=== PATIENT | female | born 1975 | race Caucasian/White ===

== ENCOUNTER 2017-09-20 08:19 | Emergency (ER) | payer SELFPAY ==
[2017-09-20 08:52] LABS: ABSOLUTE LYMPHOCYTES (AUTO) 1.4 10^3/uL (0.5-4.7); ABSOLUTE MONOCYTES (AUTO) 0.5 10^3/uL (0.1-1.4); ABSOLUTE NEUT (AUTO) 5.3 10^3/uL (1.7-8.2); BASOPHILS % (AUTO) 0.5 % (0-2); EOSINOPHILS % (AUTO) 0.2 % (0-6); HEMATOCRIT 35.8 % (36.0-47.0); HEMOGLOBIN 11.3 g/dL (12.0-15.5); LYMPHOCYTES % (AUTO) 19.4 % (13-45); MEAN CORPUSCULAR HEMOGLOBIN 22.9 pg (27.0-33.4); MEAN CORPUSCULAR HGB CONC 31.5 g/dL (32.0-36.0); MEAN CORPUSCULAR VOLUME 73 fl (80-97); MONOCYTES % (AUTO) 6.5 % (3-13); PLATELET COUNT 197 10^3/uL (150-450); RED BLOOD COUNT 4.93 10^6/uL (3.72-5.28); SEGMENTED NEUTROPHILS % (AUTO) 73.4 % (42-78); TOTAL CELLS COUNTED % (AUTO) 100 %; WHITE BLOOD COUNT 7.2 10^3/uL (4.0-10.5)
[2017-09-20 09:13] LABS: ALANINE AMINOTRANSFERASE 25 U/L (9-52); ALBUMIN 4.8 g/dL (3.5-5.0); ALKALINE PHOSPHATASE 38 U/L (38-126); ANION GAP 13 (5-19); ASPARTATE AMINO TRANSFERASE 17 U/L (14-36); BILIRUBIN,DIRECT 0.5 mg/dL (0.0-0.4); BILIRUBIN,TOTAL 0.7 mg/dL (0.2-1.3); BLOOD UREA NITROGEN 8 mg/dL (7-20); CALCIUM 9.7 mg/dL (8.4-10.2); CARBON DIOXIDE 26 mmol/L (22-30); CHLORIDE 106 mmol/L (98-107); GLUCOSE 106 mg/dL (75-110); POTASSIUM 3.4 mmol/L (3.6-5.0); TOTAL PROTEIN 7.3 g/dL (6.3-8.2)
[2017-09-20 09:15] LABS: ACETAMINOPHEN < 10 ug/mL (10-30); ALCOHOL < 10 mg/dL (NONE DETECTED); SALICYLATE < 1.0 mg/dL (2.0-20.0)
--- NOTE | 2017-09-20 09:50 | ER Document Report ---
ED General - General Chief Complaint: Psych Problem Stated Complaint: PSYCH EVAL Time Seen by Provider: 09/20/17 08:45 Mode of Arrival: Medic Information source: Patient Notes: 41-year-old female presents by EMS for concerns of psychiatric behavior. It is noted that per their records patient was speaking about demons and other strange behaviors. Patient herself states that she is here for blood pressure control and forgot to take her blood pressure medication. She denies any other complaints or self except for not being able to sleep. TRAVEL OUTSIDE OF THE [place] IN LAST 30 DAYS: No - HPI Onset: Just prior to arrival Onset/Duration: Sudden Quality of pain: No pain Severity: Mild Pain Level: Denies Associated symptoms: Other Exacerbated by: Denies Relieved by: Denies Similar symptoms previously: No Recently seen / treated by doctor: No - Related Data Allergies/Adverse Reactions: No Known Allergies Allergy (Verified 09/20/17 08:42) Past Medical History - Social History Smoking Status: Never Smoker Cigarette use (# per day): No Chew tobacco use (# tins/day): No Smoking Education Provided: No Family History: Reviewed & Not Pertinent Patient has suicidal ideation: No Patient has homicidal ideation: No - Past Medical History Cardiac Medical History: Reports: Hx Hypertension Renal/ Medical History: Denies: Hx Peritoneal Dialysis Psychiatric Medical History: Reports: Hx Bipolar Disorder, Hx Schizophrenia - Immunizations Hx Diphtheria, Pertussis, Tetanus Vaccination: Yes Review of Systems - Review of Systems Notes: REVIEW OF SYSTEMS: CONSTITUTIONAL : Denies fever, chills, or sweats. Denies recent illness. EENT: Denies eye, ear, throat, or mouth pain or symptoms. Denies nasal or sinus congestion or discharge. Denies throat, tongue, or mouth swelling or difficulty swallowing. CARDIOVASCULAR: Denies chest pain. Denies palpitations or racing or irregular heart beat. Denies ankle edema. RESPIRATORY: Denies cough, cold, or chest congestion. Denies shortness of breath, difficulty breathing, or wheezing. GASTROINTESTINAL: Denies abdominal pain or distention. Denies nausea, vomiting , or diarrhea. Denies blood in vomitus, stools, or per rectum. Denies black, tarry stools. Denies constipation. GENITOURINARY: Denies difficulty urinating, painful urination, burning, frequency, blood in urine, or discharge. FEMALE GENITOURINARY: Denies vaginal bleeding, heavy or abnormal periods, irregular periods. Denies vaginal discharge or odor. MUSCULOSKELETAL: Denies back or neck pain or stiffness. Denies joint pain or swelling. SKIN: Denies rash, lesions or sores. HEMATOLOGIC : Denies easy bruising or bleeding. LYMPHATIC: Denies swollen, enlarged glands. NEUROLOGICAL: Denies confusion or altered mental status. Denies passing out or loss of consciousness. Denies dizziness or lightheadedness. Denies headache. Denies weakness or paralysis or loss of use of either side. Denies problems with gait or speech. Denies sensory loss, numbness, or tingling. Denies seizures. PSYCHIATRIC: Denies anxiety or stress. Denies depression, suicidal ideation, or homicidal ideation. ALL OTHER SYSTEMS REVIEWED AND NEGATIVE. PHYSICAL EXAMINATION: GENERAL: Well-appearing, well-nourished and in no acute distress. HEAD: Atraumatic, normocephalic. EYES: Pupils equal round and reactive to light, extraocular movements intact, conjunctiva are normal. ENT: Nares patent, oropharynx clear without exudates. Moist mucous membranes. NECK: Normal range of motion, supple without lymphadenopathy LUNGS: Breath sounds clear to auscultation bilaterally and equal. No wheezes rales or rhonchi. HEART: Regular rate and rhythm without murmurs ABDOMEN: Soft, nontender, nondistended abdomen. No guarding, no rebound. No masses appreciated. Female : deferred Musculoskeletal: Normal range of motion, no pitting or edema. No cyanosis. NEUROLOGICAL: Cranial nerves grossly intact. Normal speech, normal gait. Normal sensory, motor exams PSYCH: Flat effect long pauses between responses inappropriate laughter SKIN: Warm, Dry, normal turgor, no rashes or lesions noted. Dictation was performed using [employer] voice recognition software Physical Exam - Vital signs Vitals: Temp Pulse Resp BP Pulse Ox 97.8 F 96 16 125/91 H 100 09/20/17 08:41 09/20/17 08:41 09/20/17 08:41 09/20/17 08:41 09/20/17 08:41 Course - Re-evaluation Re-evalutation: 09/20/17 09:50 At times it appears patient is responding to internal stimuli she medically looks well at this time lab work is pending she will definitely require mental health evaluation - Vital Signs Vital signs: Temp Pulse Resp BP Pulse Ox 97.8 F 96 16 125/91 H 100 09/20/17 08:52 09/20/17 08:52 09/20/17 08:52 09/20/17 08:52 09/20/17 08:52 - Laboratory Result Diagrams: 09/20/17 08:36 09/20/17 08:36 Laboratory results interpreted by me: 09/20/17 09/20/17 08:36 08:36 Hgb 11.3 L Hct 35.8 L MCV 73 L MCH 22.9 L MCHC 31.5 L RDW 18.0 H Potassium 3.4 L Direct Bilirubin 0.5 H Salicylates < 1.0 L Acetaminophen < 10 L Discharge - Discharge Clinical Impression: Psychosis Qualifiers: Psychosis type: unspecified psychosis type Qualified Code(s): F29 - Unspecified psychosis not due to a substance or known physiological condition Condition: Stable Disposition: PSYCH HOSP/UNIT
[2017-09-20] MEDS ORDERED: BENZTROPINE MESYLATE 1 MG TABLET PO ONE (10:35)
--- NOTE | 2017-09-20 10:39 | PSYCHOLOGICAL NOTE ---
Psych Note - Psych Note Psych Note: Reason for Consult: Confusion related to psychiatric problems Consents given: None Patient is a 41 year old female brought to the Emergency Department via EMS. EMS reported the patient showed up at a friend's home at 6:30 this morning ( 1.25.18) presenting with confusion and delusions. They reported they were told the patient's stepfather recently and his was yesterday ( 1.24.18). EMS stated the family told them the patient did not show up for the and they had not see here since the day before and had called the police department to have a missing persons report filed on her. The family reported the patient is prescribed psychiatric medications but has not been taking them. The patient told EMS she is prescribed Lisinopril (for high blood pressure) but has not been taking it. EMS stated it took them over an hour to convince her to come to the Emergency Department to be evaluated. EMS reported the patient was highly agitated, prayed continuously and wanted to drive herself to the hospital because the "Hand of God" covered her while she was in her car. EMS also reported the patient had told her friend someone at her house was going to in the attic. Collateral information gathered from neighbor of the patient (Muriel). This was the neighbor whose driveway the patient showed up in this morning. Patient's neighbor stated her son went out to their driveway this morning to start their cars to warm then up and when he came back inside he told her there was a woman in the driveway asking for help and identifying her by name. The neighbor had her go outside to assess the situation while she called 911. The neighbor stated when she went outside she was able to identify the patient as someone she went to middle and high school with. The neighbor stated she hasn't seen the patient in years and while they were friends in school they had not had contact in years. The neighbor stated their high school had a reunion last year and the patient's sister came to the event but the patient did not. The neighbor hypothesized that the patient may have heard her sister mention her ( the neighbor's name) recently which may have triggered an association for her and is why she showed up at her house. She reported the patient's step grandfather had 4 days ago and the was yesterday but that the patient did not go and no one knows where she has been since 4pm yesterday. The neighbor reported the patient told her that her brother was in the attic and was going to commit suicide. The neighbor reassured the patient all of her family members were safe. The neighbor stated the patient was praying and making statements about the "Hand of God." Patient stated she was brought to the Emergency Department because her blood pressure was "too high." She reported she takes Lisinopril but she forgot it this morning. Patient stated she normally takes it daily. This talent development director asked about her being at her neighbor's house this morning. She stated the neighbor was her best friend, Muriel Juarez. When asked how they knew each other she stated they met in high school. This talent development director asked the patient if she had a recent in her family and the patient responded "yes." When asked who had she said, "Apple Ortega, my daughter." This talent development director asked about other medications prescribed and patient responded, "Lisinopril." Patient stated she was tired. Patient was alert and oriented to person and place. Patient was not oriented to time or circumstance. She was unsure of what day it is or why she was in the hospital. Mood was calm with subdued affect. Patient denied suicidal/homicidal ideation, intent or plan. Patient appeared to be responding to internal stimuli as evidenced by answering questions not asked, blank stare, and inability to maintain conversation. Patient vacillated between a bright affect and blank facial expressions. Psychoses noted as evidenced by confusion, disorganized behavior, temple magalis and memory loss. Thought processes were disorganized. Attention and concentration were impaired. Conversational speech was slow for rate, tone and prosody. Intellectual abilities were estimated in the average range. Insight, judgment and impulse control were poor. 1. 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 Patient is not psychiatrically clear. She meets [place] G.S 122C IVC criteria as evidenced by noted psychosis, inability to care for herself due to acute psychosis and confusion and medication non-compliance. She evidences a lack of insight, poor impulse control and poor judgment. She is considered a danger to herself at this time. Placement at an inpatient hospitalization will be sought. Medication recommendation includes Zyprexa 5mg BID, Cogentin 1mg daily. Consulted with Dr. Pappas regarding the care and management of this patient. ED physician in agreement with recommendations and disposition.
[2017-09-20] MEDS ORDERED: BENZTROPINE MESYLATE 1 MG TABLET PO SCH (10:45)
[2017-09-20] MEDS ORDERED: OLANZAPINE 5 MG TABLET PO SCH (10:45)
[2017-09-20] MEDS ORDERED: OLANZAPINE 5 MG TABLET PO ONE (11:02)
--- NOTE | 2017-09-20 11:56 | EKG REPORT ---
SEVERITY:- ABNORMAL ECG - SINUS RHYTHM LEFT VENTRICULAR HYPERTROPHY BORDERLINE T ABNORMALITIES, INFERIOR LEADS : Confirmed by: Estuardo Evans 20-Sep-2017 11:56:10
[2017-09-21 09:05] LABS: APPEARANCE,URINE SLIGHTLY-CLOUDY; BILIRUBIN,URINE NEGATIVE (NEGATIVE); COLOR,URINE STRAW; GLUCOSE, URINE NEGATIVE (NEGATIVE); KETONES,URINE TRACE mg/dL (NEGATIVE); LEUKOCYTE ESTERASE,URINE MODERATE (NEGATIVE); NITRITE,URINE NEGATIVE (NEGATIVE); PROTEIN,URINE NEGATIVE (NEGATIVE); URINE SPECIFIC GRAVITY 1.001; UROBILINOGEN,URINE NEGATIVE mg/dL (<2.0)
[2017-09-21 09:14] LABS: URINE AMPHETAMINES SCREEN NEGATIVE; URINE BARBITURATES SCREEN NEGATIVE; URINE BENZODIAZEPINES SCREEN NEGATIVE; URINE COCAINE SCREEN NEGATIVE; URINE MARIJUANA (THC) SCREEN NEGATIVE; URINE METHADONE SCREEN NEGATIVE; URINE PHENCYCLIDINE SCREEN NEGATIVE
--- NOTE | 2017-09-21 09:47 | ER Document Report ---
Doctor's Note Notes: 09/21/17 09:47 Medical rounds: Chart reviewed and patient interviewed briefly. Vital signs remained normal. Laboratory values are satisfactory. On examination, the patient appears to be actively hallucinating, talking to herself or to persons were not present. She remains medically stable, pending psychiatric stabilization and disposition.
[2017-09-21] MEDS ORDERED: CHLORPROMAZINE HCL 50 MG TABLET PO ONE (11:06)
[2017-09-21] MEDS ORDERED: CHLORPROMAZINE HCL 50 MG TABLET PO PRN (11:07)
--- NOTE | 2017-09-21 11:22 | PSYCHOLOGICAL NOTE ---
Psych Note - Psych Note Psych Note: Reason for Consult: Confusion related to psychiatric problems Consents given: None Patient is a 41 year old female brought to the Emergency Department via EMS. EMS reported the patient showed up at a friend's home at 6:30 this morning ( 1.25.18) presenting with confusion and delusions. They reported they were told the patient's stepfather recently and his was yesterday ( 1..18). EMS stated the family told them the patient did not show up for the and they had not see here since the day before and had called the police department to have a missing persons report filed on her. The family reported the patient is prescribed psychiatric medications but has not been taking them. The patient told EMS she is prescribed Lisinopril (for high blood pressure) but has not been taking it. EMS stated it took them over an hour to convince her to come to the Emergency Department to be evaluated. EMS reported the patient was highly agitated, prayed continuously and wanted to drive herself to the hospital because the "Hand of God" covered her while she was in her car. EMS also reported the patient had told her friend someone at her house was going to in the attic. Check in with patient: Patient disclosed that she is currently at [facility], the patient requested the door to be closed and whispered "can you read lips?...its because my crazy asked brother." Patient refused to elaborate on this stating that she does not want to talk about it. When asked how she feels today versus yesterday she stated "I do not even know what day it is." Clinician explained today was Sunday patient responded "yes that is what they said." Patient was asked with the last thing she remembered was and she stated "drinking all the water I could." Talk to the clinician at another time patient started to ask clinician a question however stopped herself and stated that she would just, clinician attempted to engage the patient however patient refused. Chart review conducted: Attending nurse noted [phone] this nurse tried to medicate pt and pt stated she wasn't taking the medicine and that she believes in the holy word of God and that he will heal her and she's not taking it. She also stated that she found out that she's today and that she's never had sex before and that God told her she was . This nurse talked with pt and explained that she needed to take her medicine. Patient is observed talking to herself in her room. 296.44 (F31.2) bipolar 1 disorder with psychotic features Impression/Plan: Recommend IVC. Patient is not psychiatrically clear. She meets [place] G.S 122C IVC criteria as evidenced by noted psychosis, inability to care for herself due to acute psychosis and confusion and medication non-compliance. She evidences a lack of insight, poor impulse control and poor judgment. She is considered a danger to herself at this time. Consulted with Dr. Pappas regarding the care and management of this patient. ED physician in agreement with recommendations and disposition.
[2017-09-21 13:58] VITALS: BP 149/93
[2017-09-21] MEDS ORDERED: OLANZAPINE 5 MG TAB.RAPDIS PO SCH (18:00)
== END 2017-09-21 14:25 ==
LOC: ER 08:19
DX: F29 Unspecified psychosis not due to a substance or known physiological condition (principal); I10 Essential (primary) hypertension
CPT/HCPCS: 93005; 36415; 80307 ×4; 84703; 85025; 80053; 81001; 93010; J3490